=== PATIENT | male | born 1940 | race Two or more races ===

== ENCOUNTER 2016-10-05 12:33 | Emergency (ER) | payer MEDICARE ==
[~2016-10-05] VITALS: Ht 172.7 cm; Wt 79.8 kg
[2016-10-05 12:51] VITALS: BP 175/97
[2016-10-05] MEDS ORDERED: Tetanus/Diptheria/Pertussis Vaccine 0.5ml Syr IM ONE (13:00)
[2016-10-05] MEDS ORDERED: Lidocaine 1% Plain 30 ml INJ ONE (13:00)
[2016-10-05] MEDS ORDERED: Bacitracin Oint UD TOPIC ONE (13:00)
--- NOTE | 2016-10-05 13:11 | Emergency Room Report ---
History of Present Illness General Chief Complaint: Laceration Source: Patient Present Illness HPI The patient is a 76-year-old male presenting for a laceration of the left hand which occurred today. The patient states that he was moving a door which fell on his hand. He experienced pain and bleeding. Now described as a 4-10 sharp sensation and does not radiate. Pain worse with touch. He denies any other injury. He denies numbness or tingling. He is unsure of last tetanus shot He denies any other symptoms Allergies: Coded Allergies: No Known Allergies (Unverified , 10/05/16) Patient History Past Medical History: see triage record Pertinent Family History: none Reviewed Nursing Documentation: PMH: Agreed, PSxH: Agreed Nursing Documentation-PMH Past Medical History: No Stated History Review of Systems All Other Systems: negative except mentioned in HPI Physical Exam Vital Signs Date Time Temp Pulse Resp B/P Pulse Ox O2 Delivery O2 Flow Rate FiO2 10/05/16 12:41 71 22 175/97 95 Room Air Sp02 EP Interpretation: reviewed, normal General Appearance: no apparent distress, alert, GCS 15, non-toxic Head: normocephalic, atraumatic Eyes: bilateral eye PERRL, bilateral eye normal inspection Musculoskeletal: back normal, gait/station normal, normal range of motion, tender - TTP over the L 3rd distal MCP Neurologic: alert, oriented x3, responsive, motor strength/tone normal, sensory intact, speech normal Psychiatric: judgement/insight normal, memory normal, mood/affect normal, no suicidal/homicidal ideation Skin: laceration - 5cm linear laceration to mid L dorsal hand. No active bleeding Procedures Laceration/Wound Repair Laceration/Wound Repair : Consent: Verbal Wound Location: upper extremity - L hand Wound's Depth, Shape: superficial, linear Wound Length (cm): 5 Wound Explored: clean Irrigated w/ Saline (ccs): 50 Betadine Prep?: Yes Anesthesia: 1% Lidocaine Volume Anesthetic (ccs): 5 Wound Debrided: minimal Wound Repaired With: sutures Suture Size/Type: 4:0, proline Number of Sutures: 5 Layer Closure?: No Sterile Dressing Applied?: Yes Splint Applied?: No Sling Applied?: No Patient Tolerated: Well Complications: None Medical Decision Making PA Attestation Dr. Dickinson is my supervising physician. Patient management was discussed with my supervising physician Diagnostic Impression: Primary Impression: Hand laceration Qualified Codes: S61.412A - Laceration without foreign body of left hand, initial encounter ER Course The patient is a 76-year-old male presenting for left hand laceration Ddx considered include but not limited to fracture, tendon/ligament injury, avulsion, nerve damage Physical exam: There is a 5 cm superficial linear laceration to the dorsum of the left hand. Minimal active bleeding. Tender to palpation. Full active range of motion X-ray of the hand is unremarkable Tetanus shot given The wound was irrigated with normal saline and cleaned with betadine. A 27g needle was used to administer 5mL of lidocaine w.o epi for local anasthesia. 5 sutures were placed with 4-0 prolene. The wound was well approximated and the patient tolerated the procedure well. The wound was then cleaned and bacitracin was applied. The patient is discharged home with a prescription for bacitracin. ER precautions given and laceration instructions given Other X-Ray Diagnostic Results # of Views/Limited Vs Complete: 3 View Interpretation: no fractures, no dislocation, no soft tissue swelling Indication: Pain Impression: No acute disease Date Electronically Signed: Oct 05, 2016 Time Electronically Signed: 14:48 Interpreting ER Physician: Dr. Dickinson PA Scribe Text I am acting as scribe for my supervising physician. My supervising physician's interpretation of the Dr. dickinosn xrays are there are no fractures, dislocations or soft tissue swelling. Last Vital Signs Date Time Temp Pulse Resp B/P Pulse Ox O2 Delivery O2 Flow Rate FiO2 10/05/16 12:51 22 175/97 95 Room Air 10/05/16 12:41 71 Status: improved Disposition: HOME, SELF-CARE Condition: Improved Scripts Bacitracin Zinc (ANTIBIOTIC) 28.4 Gm Oint...g. 28.4 GM TP TID, #28 GM Prov: FABI ESTRADA 10/05/16 FABI ESTRADA Oct 05, 2016 13:11
[2016-10-05] MEDS ORDERED: ANTIBIOTIC28.4 GM TP (13:37)
[2016-10-05 13:56] VITALS: BP 157/89
--- NOTE | 2016-10-05 14:43 | Diagnostic Imaging Report ---
Indications: Left hand pain Technique: 3 views of the left hand. Findings: Comparison: None. No fracture, dislocation, lytic destruction, periosteal reaction, surrounding soft tissue swelling, or other acute changes are demonstrated. No deformity, alignment abnormality, arthritic change, soft tissue calcification, or other chronic changes are demonstrated. IMPRESSION: Negative left hand series.
== END 2016-10-05 14:00 | disposition home or self-care (01) ==
LOC: EMR 13:14
DX: S61.412A Laceration without foreign body of left hand, initial encounter (principal); W22.8XXA Striking against or struck by other objects, initial encounter; Y92.89 Other specified places as the place of occurrence of the external cause; Z23 Encounter for immunization
CPT/HCPCS: 12002; 73130; 90471; 90715; 96372; 99284; J2001

== ENCOUNTER 2016-10-12 10:46 | Emergency (ER) | payer MEDICARE ==
[~2016-10-12] VITALS: Ht 172.7 cm; Wt 80.7 kg
[~2016-10-12 10:46] MED LIST: ANTIBIOTIC28.4 GM TP
[2016-10-12 11:18] VITALS: BP 146/87
--- NOTE | 2016-10-12 11:19 | Emergency Room Report ---
History of Present Illness General Chief Complaint: Wound Recheck/Suture Removal Source: Patient Present Illness HPI Patient here for suture removal. No fevers, pain, redness, numbness. Dorsum L hand. Sutured 7 days ago. Allergies: Coded Allergies: No Known Allergies (Unverified , 10/05/16) Patient History Past Medical History: see triage record, other - tracoma L eye as baby Social History Narrative From [place] Reviewed Nursing Documentation: PMH: Agreed, PSxH: Agreed Nursing Documentation-PMH Past Medical History: No Stated History Review of Systems Constitutional: Reports: see HPI Musculoskeletal: Reports: see HPI Skin: Reports: see HPI Neurological: Reports: see HPI Physical Exam Vital Signs Date Time Temp Pulse Resp B/P Pulse Ox O2 Delivery O2 Flow Rate FiO2 10/12/16 10:51 97.9 57 15 146/87 99 Room Air Sp02 EP Interpretation: reviewed, normal General Appearance: well appearing, no apparent distress Head: normocephalic, atraumatic Eyes: left eye other - scarring ENT: hearing grossly normal, normal voice Neck: full range of motion, supple Respiratory: no respiratory distress, speaking full sentences Cardiovascular #2: 2+ radial (L) Musculoskeletal: digits/nails normal, normal range of motion Neurologic: alert, normal gait, grossly normal Psychiatric: mood/affect normal Skin: no rash, wd healing/no infection noted Medical Decision Making Diagnostic Impression: Primary Impression: Encounter for removal of sutures ER Course Patient for suture removal. Well healed laceration. Sutures removed. Steri strips applied. Patient stable for outpatient observation and treatment. Last Vital Signs Date Time Temp Pulse Resp B/P Pulse Ox O2 Delivery O2 Flow Rate FiO2 10/12/16 11:46 97.9 15 146/87 99 Room Air 10/12/16 10:51 57 Status: improved Disposition: HOME, SELF-CARE Condition: Improved Mitchel Wise M.D. Oct 12, 2016 11:19
[2016-10-12] MEDS ORDERED: Bacitracin Oint UD TOPIC ONE (11:30)
[2016-10-12 11:46] VITALS: BP 146/87
== END 2016-10-12 11:40 | disposition home or self-care (01) ==
LOC: EMR 11:30
DX: Z48.02 Encounter for removal of sutures (principal)
CPT/HCPCS: 99282

== ENCOUNTER 2017-08-27 17:54 | Emergency (ER) | payer MEDICAID, MEDICARE ==
[~2017-08-27] VITALS: Ht 172.7 cm; Wt 79.4 kg
[2017-08-27] MEDS ORDERED: NKM (18:05)
[2017-08-27 18:08] VITALS: BP 123/73
--- NOTE | 2017-08-27 18:12 | Emergency Room Report ---
History of Present Illness General Chief Complaint: Laceration Source: Patient Present Illness HPI 77-year-old male patient presents to ER complaining of cut on the left index finger. States that the injury occurred 30 minutes ago. patient reports that he cut his left index finger with a knife while preparing dinner. Patient reports that he is up to has vaccine shots. Patient reports bleeding from the site of injury. Patient reports no loss of range of motion. patient reports he is right-hand dominant. Allergies: Coded Allergies: No Known Allergies (Unverified , 10/05/16) Patient History Past Medical History: see triage record Reviewed Nursing Documentation: PMH: Agreed; PSxH: Agreed Nursing Documentation-PMH Past Medical History: No Stated History Review of Systems All Other Systems: negative except mentioned in HPI Physical Exam Vital Signs Date Time Temp Pulse Resp B/P (MAP) Pulse Ox O2 Delivery O2 Flow Rate FiO2 08/27/17 17:58 98.2 65 18 123/73 96 Room Air 98.2 Sp02 EP Interpretation: reviewed, normal General Appearance: well appearing, no apparent distress, alert, GCS 15, non- toxic Head: normocephalic, atraumatic Eyes: bilateral eye normal inspection, bilateral eye PERRL Respiratory: lungs clear, normal breath sounds, no rhonchi, no respiratory distress, no accessory muscle use, no wheezing, speaking full sentences Cardiovascular #1: regular rate, rhythm, no edema Cardiovascular #2: 2+ radial (R), 2+ radial (L) Musculoskeletal: back normal, digits/nails normal, gait/station normal, normal range of motion, non-tender, other - NVI, sensation intact to light touch Neurologic: alert, oriented x3, responsive, motor strength/tone normal, sensory intact Psychiatric: mood/affect normal Skin: laceration - left index finger distal phalanx: u-shaped laceration across distal phalanx towards finger tip, no nail avulsion, no nail bed damage Procedures Laceration/Wound Repair Laceration/Wound Repair : Consent: Verbal Wound Location: upper extremity - left hand Wound's Depth, Shape: superficial Wound Explored: contaminated Irrigated w/ Saline (ccs): 10 Betadine Prep?: Yes Anesthesia: 1% Lidocaine Volume Anesthetic (ccs): 2 Wound Debrided: extensive Wound Repaired With: sutures Suture Size/Type: 6:0 Number of Sutures: 5 Layer Closure?: No Sterile Dressing Applied?: Yes Splint Applied?: Yes Sling Applied?: No Patient Tolerated: Well Complications: None Medical Decision Making PA Attestation Dr. Pollard is my supervising Physician whom patient management has been discussed with. Diagnostic Impression: Primary Impression: Laceration ER Course Pt presents to ED c/o laceration on left index finger. DDX considered but are not limited to laceration, abrasion, contusion, cellulitis. VITAL SIGNS are WNL, patient is afebrile ED INTERVENTIONS: No nail bed damage. Wound was cleaned and irrigated using normal saline. Local and digital block using Lidocaine 1%. Laceration repaired. 5 sutures placed. Wound cleaned and covered using sterile dressing and Bacitracin. Patient finger splinted. Patient reports understanding and agreement to treatment plan. Keep wound clean and dry. Patient up to date on vaccinations, does not require tetanus shot at this time. DISCHARGE: Rx provided for Keflex Rx provided for Ibuprofen At this time pt is stable for d/c to home. Patient resting comfortably, in no acute distress, nontoxic appearing, talking without difficulty. Will provide with patient care instructions and any necessary prescriptions. Patient to take medication as instructed. Care plan and follow-up instructions provided. Work note provided to patient. Patient questions asked and answered. Patient reports understanding and agreement to treatment plan. Patient instructed to follow-up with primary care provider in 1-3 days for wound check and 7-10 days for removal of sutures ER precautions given. Patient instructed to return to ER immediately for any new or worsening of symptoms. - Please note that this Emergency Department Report was dictated using [employer] supervisor technology software, occasionally this can lead to erroneous entry secondary to interpretation by the dictation equipment. Last Vital Signs Date Time Temp Pulse Resp B/P (MAP) Pulse Ox O2 Delivery O2 Flow Rate FiO2 08/27/17 17:58 98.2 65 18 123/73 96 Room Air 98.2 Disposition: HOME, SELF-CARE Condition: Stable Scripts Acetaminophen* (TYLENOL EXTRA STRENGTH*) 500 Mg Tablet 500 MG ORAL Q8H PRN for Prn Headache/Temp > 101, #30 TAB 0 Refills Prov: Emigdio Luciano P.A. 08/27/17 Cephalexin* (KEFLEX*) 500 Mg Capsule 500 MG ORAL EVERY 12 HOURS, #14 CAP 0 Refills Prov: AnkitaEmigdio 08/27/17 Patient Instructions: Laceration Care, Adult Additional Instructions: Patient instructed to follow-up with primary care provider in 1-3 days for wound check and 7-10 days for removal of sutures. Take medications as directed. Keep wound clean and dry. Patient questions asked and answered. ER precautions given, patient instructed to return to ER immediately for any new or worsening of symptoms. Emigdio Luciano August 27, 2017 18:12
[2017-08-27] MEDS ORDERED: Lidocaine 1% Plain 30 ml INJ ONE (18:30)
[2017-08-27] MEDS ORDERED: Bacitracin Oint UD TOPIC ONE (18:30)
[2017-08-27] MEDS ORDERED: TYLENOL EXTRA500 MG ORAL (18:59)
[2017-08-27] MEDS ORDERED: CEPHALEXIN500 MG ORAL (18:59)
[2017-08-27 19:15] VITALS: BP 123/73
== END 2017-08-27 19:15 | disposition home or self-care (01) ==
LOC: EMR 18:32
DX: S61.211A Laceration without foreign body of left index finger without damage to nail, initial encounter (principal); W26.0XXA Contact with knife, initial encounter; Y92.9 Unspecified place or not applicable
CPT/HCPCS: 12001; 99284; J2001

== ENCOUNTER 2017-08-30 09:17 | Emergency (ER) | payer MEDICARE ==
[~2017-08-30] VITALS: Ht 172.7 cm; Wt 79.4 kg
[~2017-08-30 09:17] MED LIST changes: +CEPHALEXIN500 MG ORAL; +NKM; +TYLENOL EXTRA500 MG ORAL
[2017-08-30 09:33] VITALS: BP 148/84
--- NOTE | 2017-08-30 09:43 | Emergency Room Report ---
History of Present Illness General Chief Complaint: Wound Recheck/Suture Removal Source: Patient Present Illness HPI The patient presents for wound check. He cut his finger last [place]. He was sutured. Almost cut the tip off. He's had some pain but no more bleeding and no fevers. He has kept the dressing on. He denies pain at this time. He had a hand laceration a year ago. Allergies: Coded Allergies: No Known Allergies (Unverified , 10/05/16) Patient History Past Medical History: see triage record Social History: Denies: smoking Social History Narrative at home Reviewed Nursing Documentation: PMH: Agreed; PSxH: Agreed Nursing Documentation-PMH Past Medical History: No Stated History Review of Systems Constitutional: Denies: fever Musculoskeletal: Reports: see HPI Skin: Reports: see HPI Neurological: Reports: see HPI Hematologic/Lymphatic: Reports: see HPI Physical Exam Vital Signs Date Time Temp Pulse Resp B/P (MAP) Pulse Ox O2 Delivery O2 Flow Rate FiO2 08/30/17 09:23 97.3 55 17 151/89 95 Room Air 97.3 Sp02 EP Interpretation: reviewed, normal General Appearance: well appearing, no apparent distress Head: normocephalic, atraumatic Eyes: bilateral eye normal inspection, bilateral eye PERRL ENT: hearing grossly normal, normal voice Neck: full range of motion, supple Respiratory: no respiratory distress, speaking full sentences Musculoskeletal: gait/station normal, normal range of motion, no calf tenderness Neurologic: alert, motor strength/tone normal, sensory deficit - tip Psychiatric: mood/affect normal Skin: wd healing/no infection noted - L index finger Medical Decision Making Diagnostic Impression: Primary Impression: Encounter for wound re-check ER Course The patient presents for wound recheck. The wound appears to be healing well. Just old blood will clean this off. Also we'll redress it with antibiotic ointment. The margin of the wound may be of questionable viability however the central portion appears to have good vascular at this time. There is no evidence of infection at this time. Patient stable for outpatient observation and treatment. Last Vital Signs Date Time Temp Pulse Resp B/P (MAP) Pulse Ox O2 Delivery O2 Flow Rate FiO2 08/30/17 10:08 97.3 72 18 148/84 97 Room Air 97.3 Status: improved Disposition: HOME, SELF-CARE Condition: Improved Mitchel Wise M.D. August 30, 2017 09:43
[2017-08-30] MEDS ORDERED: Bacitracin Oint UD TOPIC ONE (09:45)
[2017-08-30] MEDS ORDERED: Hydrogen Peroxide 473ml Bottle TOPIC ONE (09:45)
[2017-08-30 10:08] VITALS: BP 148/84
== END 2017-08-30 10:15 | disposition home or self-care (01) ==
LOC: EMR 09:44
DX: S61.211D Laceration without foreign body of left index finger without damage to nail, subsequent encounter (principal); Z48.00 Encounter for change or removal of nonsurgical wound dressing
CPT/HCPCS: 99281

== ENCOUNTER 2017-09-03 10:43 | Emergency (ER) | payer MEDICARE ==
[~2017-09-03] VITALS: Ht 162.6 cm; Wt 72.6 kg
[2017-09-03 10:58] VITALS: BP 148/83
--- NOTE | 2017-09-03 11:40 | Emergency Room Report ---
History of Present Illness General Chief Complaint: Wound Recheck/Suture Removal Source: Patient Present Illness HPI This patient presents for suture removal after a skin of the fingertip avulsion 8 days ago. He obtained sutures and is here for suture removal. He has no other complaints. He did not follow-up with his primary care physician. Allergies: Coded Allergies: No Known Allergies (Unverified , 10/05/16) Patient History Past Medical History: see triage record Past Surgical History: none Social History: Denies: smoking, alcohol use, drug use Reviewed Nursing Documentation: PMH: Agreed; PSxH: Agreed Nursing Documentation-PMH Past Medical History: No Stated History Review of Systems All Other Systems: negative except mentioned in HPI Physical Exam Vital Signs Date Time Temp Pulse Resp B/P (MAP) Pulse Ox O2 Delivery O2 Flow Rate FiO2 09/03/17 10:48 97.8 53 20 148/83 99 Room Air 97.9 Sp02 EP Interpretation: reviewed, normal General Appearance: no apparent distress, alert, GCS 15, non-toxic Head: normocephalic, atraumatic Eyes: bilateral eye normal inspection, bilateral eye PERRL ENT: hearing grossly normal, normal pharynx, no angioedema, normal voice Neck: full range of motion, supple/symm/no masses Respiratory: no respiratory distress, no retraction, no accessory muscle use, speaking full sentences Rectal: deferred Musculoskeletal: back normal, gait/station normal, normal range of motion, non- tender, other - Right index finger: fingertip skin is dark. sutures and in place and edges healed. Neurologic: alert, oriented x3, responsive, motor strength/tone normal, sensory intact, speech normal Psychiatric: judgement/insight normal, memory normal, mood/affect normal, no suicidal/homicidal ideation Skin: warm/dry, well hydrated, other - See above in [facility] Medical Decision Making Diagnostic Impression: Primary Impression: Encounter for removal of sutures ER Course Patient presents for removal of sutures. The wound is healing. However, the avulsed skin that was tacked down with the sutures is dark in color and is not appear to be viable. It is difficult to determine whether the skin will recover or if the skin will necrose. The patient will need to follow up closely with his primary care physician. The wound and skin may need to be debrided at some point. However, there is no evidence of infection, sutures are removed and the patient is instructed on very close follow-up for wound care. He was given return precautions and follow up instructions. Last Vital Signs Date Time Temp Pulse Resp B/P (MAP) Pulse Ox O2 Delivery O2 Flow Rate FiO2 09/03/17 10:58 97.9 72 20 148/83 99 Room Air 97.9 Disposition: HOME, SELF-CARE Condition: Improved Referrals: NOT CHOSEN IPA/,REFERRING (PCP) Patient Instructions: Wound Check RUSSELL LOTT D.O. September 03, 2017 11:40
[2017-09-03 11:55] VITALS: BP 148/83
== END 2017-09-03 12:39 | disposition home or self-care (01) ==
LOC: EMR 11:25
DX: S61.300D Unspecified open wound of right index finger with damage to nail, subsequent encounter (principal); X58.XXXD Exposure to other specified factors, subsequent encounter; Z48.02 Encounter for removal of sutures
CPT/HCPCS: 99281